=== PATIENT | female | born 1980 | race Caucasian/White ===

== ENCOUNTER 2017-02-12 18:44 | Emergency (ER) | payer OTHER | END 2017-02-12 21:15 | disposition home or self-care (01) | LOC: CED 18:44 | DX: H10.31 Unspecified acute conjunctivitis, right eye (principal); F43.10 Post-traumatic stress disorder, unspecified; F32.9 Major depressive disorder, single episode, unspecified; F42.9 Obsessive-compulsive disorder, unspecified; Z88.8 Allergy status to other drugs, medicaments and biological substances | CPT/HCPCS: 99282 ==